=== PATIENT | female | born 1985 | race Caucasian/White ===

== ENCOUNTER 2017-10-15 12:55 | Emergency (ER) | payer OTHER ==
[~2017-10-15] VITALS: Ht 157.5 cm; Wt 78.9 kg
[~2017-10-15 12:55] MED LIST: COLACE100 MG PO; FOL1 PO; LAC PO; LEVAQUIN500 MG PO; NOR10T PO; NORCO1 TA2 PO; ONDANSETRON ODT4 M1 PO; ZOF4 PO
[2017-10-15 13:19] VITALS: Ht 157.5 cm; Wt 78.9 kg
[2017-10-15 14:58] LABS: BASOPHIL % 1.6 % (0-2); PLATELET COUNT 152 x10^3mcL (130-400); RED CELL DISTRIBUTION WIDTH 13.7 % (11.5-14.5)
[2017-10-15 15:27] LABS: CALCIUM 8.6 mg/dL (8.5-10.1); CARBON DIOXIDE 25.2 mmol/L (21-32); CHLORIDE SERUM 105 mmol/L (98-107); CREATININE SERUM 0.7 mg/dL (0.6-1.0); GFR1 > 60 mL/min; GLUCOSE SERUM 91 mg/dL (74-106); POTASSIUM SERUM 3.9 mmol/L (3.5-5.1); SODIUM SERUM 140 mmol/L (136-145)
[2017-10-15 15:28] LABS: microscopic required? YES; urine erythrocyte 3+ (NEGATIVE)
[2017-10-15 17:03] VITALS: BP 119/74
== END 2017-10-15 17:03 | disposition home or self-care (01) ==
LOC: ED 12:55
PROVIDERS: Emergency Medicine Emergency Medical Services
DX: B34.9 Viral infection, unspecified (principal); E86.0 Dehydration; E11.9 Type 2 diabetes mellitus without complications; Z88.5 Allergy status to narcotic agent; Z88.8 Allergy status to other drugs, medicaments and biological substances
CPT/HCPCS: 36415; 82962